=== PATIENT | female | born 1995 | race Caucasian/White ===

== ENCOUNTER → 2016-05-22 17:43 | Observation (INO) ==
[2016-05-22 16:53] LABS: Bilirubin,Urine Negative (Negative); Blood,Urine Negative (Negative); Color,Urine Dark Yellow (Yellow); Glucose,Urine (UA) Normal (Normal); Ketones,Urine Negative (Negative); Leukocyte Esterase,Urine Negative (Negative); Nitrite,Urine Negative (Negative); Protein,Urine Negative (Neg-Trace); Specific Gravity,Urine 1.026 (1.010-1.025); Urobilinogen,Urine Normal (Normal)
[2016-05-22 16:57] LABS: Clarity,Urine Hazy (Clear)
[~2016-05-22 17:43] MED LIST: Ringers Solution, Lactated 1,000 ML IVC SCH
--- NOTE | 2016-05-22 20:29 | OB/GYN Progress Note ---
Date of Encounter: 05/22/16 Time of Encounter: 20:19 - Assessment and Plan (1) contractions Current Visit: Yes Status: Acute 20 y/o @ 26 weeks presented with PTC. She was checked and closed, FHT CAT 1 , UA neg, patient discharged to follow up out pt. Objective - Vital Signs Vital Signs: Intake and Output 05/22/16 05/22/16 05/22/16 07:59 15:59 23:59 Other: Weight 51.6 kg Patient Weight 05/22/16 23:59 Weight 51.6 kg - Labs Labs: Abnormal lab results Urine Clarity Hazy (Clear) A 05/22/16 16:40 Ur Specific [place] 1.026 (1.010-1.025) H 05/22/16 16:40
== END | disposition home or self-care (01) ==
LOC: 1NENULAB
PROVIDERS: ADMIT Student in an Organized Health Care Education/Training Program; ATTEND Student in an Organized Health Care Education/Training Program

== ENCOUNTER → 2016-07-29 02:54 | Observation (INO) ==
[2016-07-29 01:32] LABS: Bilirubin,Urine Negative (Negative); Blood,Urine Negative (Negative); Color,Urine Dark Yellow (Yellow); Glucose,Urine (UA) Normal (Normal); Ketones,Urine Negative (Negative); Leukocyte Esterase,Urine Trace (Negative); Nitrite,Urine Negative (Negative); Protein,Urine Trace mg/dL (Neg-Trace); Specific Gravity,Urine > 1.030 (1.010-1.025); Urobilinogen,Urine Normal (Normal)
--- NOTE | 2016-07-29 01:32 | Discharge Summary ---
Date of Encounter: 07/29/16 Time of Encounter: 01:42 - Discharge Diagnosis (1) Uterine contractions during Priority: Primary Status: Acute Comments: Patient arrives to labor and delivery with complaints of contractions and leaking of fluid beginning at 9pm. She states positive movement. She denies headache, visual disturbance, epigastric pain, and vaginal bleeding. She is GBS negative, has an Rh negative blood type with a dose of Rhogam at 26 weeks, and has a history of late care beginning in the 2nd trimester , heroin and street suboxone use, and began group with detox and subutex use starting yesterday. Nitrazine negative SVE - closed/thick/high per RN Repeat SVE in 2 hours Extended monitoring Urinalysis contaminated and concentrated Encouraged patient to drink more water Discharge home with labor labor precautions and kick counts Follow up in office as scheduled and to labor and delivery triage as needed. (2) 36 weeks gestation of Priority: Secondary Status: Acute Comments: Follow up in office with scheduled care with Dr Mcadams. (3) NST (non-stress test) reactive Priority: Secondary Status: Acute Comments: FHTs 125 with moderate variability and 15 x 15 accels, no decels Irregular contractions. Reactive NST (4) Vaginal yeast infection Priority: Secondary Status: Acute Comments: Thick white discharge on RN's glove when removed Urine has yeast present Terazol 3 Rx sent with patient to fill tomorrow. - Discharge Medications Prescriptions: Terconazole [Terazol 3] 20 gm VG HS 3 Days Home Medications: Aspirin 81 mg DAILY 05/22/16 [History] Suboxone 8 mg-2 mg Sl Film 8 mg PO DAILY 05/22/16 [History] Terconazole [Terazol 3] 20 gm VG HS 3 Days 07/29/16 [Rx] Allergies/Adverse Reactions: Allergies No Known Allergies Allergy (Verified 01/12/16 19:24) Date of admission: 07/29/16 01:08 Primary care physician: PCP ERINN Discharging clinician: Cammie Sawyer Anticipated date of discharge: 07/29/16 - Patient Status Disposition: Home, Self-Care Condition: Good Functional capacity at discharge: independent ambulation - Discharge Instructions Follow Up With: ERINN,PCP [Primary Care Provider] - Walt Mcadams MD [Partnered Physician] - - Diet and Activity Activity: resume usual activities as tolerated Diet: regular diet Hospital Course WEIGHT LOSS PHYSICIAN Time Attestation: Total time spent providing and/or coordinating discharge services: Time Spent: Less than 30 minutes Exam - Constitutional General appearance IM: cooperative, A&O X 3, pleasant - Respiratory Respiratory exam: Present: CTAB - Cardiovascular Cardiovascular exam IM: Present: RRR, +S1, +S2 - GI/Abdominal GI/Abdominal exam IM: normal bowel sounds, soft - Extremities Exam Extremities exam IM: Present: normal capillary refill, normal inspection, radial pulses palpable and symetrical - Neurological Exam Neurological exam: alert, oriented X3, reflexes normal - VTE Reasons for not Prescribing Prophylaxis: Treatment not Indicated - Low risk for VTE
[2016-07-29 01:35] LABS: Bacteria,Urine Moderate per hpf (None-Few); RBC,Urine 0-3 per hpf (0-3); Squamous Epithelial Cell,Urine Many per lpf (None-Few); WBC,Urine 15-30 per hpf (0-3)
[2016-07-29 01:37] LABS: Clarity,Urine Slightly Hazy (Clear)
[2016-07-29 01:55] LABS: Calcium Oxalate Crystals,Urine Present; Granular Casts,Urine Few per lpf (None Seen); Hyaline Casts,Urine None Seen per lpf (None-Few); Mucus,Urine Many (Few); Uric Acid Crystals,Urine Present; Yeast,Urine Moderate per hpf (None Seen)
== END | disposition home or self-care (01) ==
LOC: 1NENULAB
PROVIDERS: ADMIT Advanced Practice Midwife; ATTEND Advanced Practice Midwife

== ENCOUNTER → 2016-08-15 19:03 | Observation (INO) ==
--- NOTE | 2016-08-15 18:05 | Discharge Summary ---
Date of Encounter: 08/15/16 Time of Encounter: 18:05 - Discharge Diagnosis (1) 39 weeks gestation of Priority: Primary Status: Acute Comments: admitted for labor evaluation (2) NST (non-stress test) reactive Priority: Secondary Status: Acute Comments: Reactive nst. Baseline 145 bpm moderate variability +15x15 accels no decels noted. (3) False labor Priority: Secondary Status: Acute Comments: no cervical change after 1 hour. SVE 1/thick/high - Discharge Medications Home Medications: Aspirin 81 mg DAILY 05/22/16 [History] Suboxone 8 mg-2 mg Sl Film 8 mg PO DAILY 05/22/16 [History] Terconazole [Terazol 3] 20 gm VG HS 3 Days 07/29/16 [Rx] Allergies/Adverse Reactions: Allergies No Known Allergies Allergy (Verified 01/12/16 19:24) Date of admission: 08/15/16 16:43 Primary care physician: PCP NO Discharging clinician: Azalea Finn Anticipated date of discharge: 08/15/16 - Patient Status Disposition: Home, Self-Care Condition: Good Functional capacity at discharge: independent ambulation - Discharge Instructions Follow Up With: ERINN,PCP [Primary Care Provider] - Walt Mcadams MD [Partnered Physician] - - Diet and Activity Activity: increase activity as tolerated Diet: regular diet Hospital Course MECHANIC FIELD SERVICE Hospital course: Patient is 20 y/o at 39w0d sent from OB office for labor evaluation due to having contractions. No sve in office today. Patient denies LOF or VB. Patient reports +FM. SVE1/thick/high per RN. Time Attestation: Total time spent providing and/or coordinating discharge services: Time Spent: Less than 30 minutes Exam - Constitutional General appearance IM: A&O X 3, pleasant, answers questions appropriately (FHR 145 bpm moderate variability +15x15 accels no decels noted. Cat. 1 tracing Irregular contractions noted.) - VTE Reasons for not Prescribing Prophylaxis: Treatment not Indicated - Low risk for VTE
== END | disposition home or self-care (01) ==
LOC: 1NENULAB
PROVIDERS: ADMIT Obstetrics & Gynecology; ATTEND Obstetrics & Gynecology

== ENCOUNTER → 2016-08-17 01:47 | Observation (INO) ==
--- NOTE | 2016-08-17 06:20 | Discharge Summary ---
Date of Encounter: 08/17/16 Time of Encounter: 01:00 - Discharge Diagnosis (1) False labor Priority: Primary Status: Acute Comments: Patient arrives to labor and delivery with c/o contractions. She was seen in the office today with Dr Mcadams and her sent her to labor and delivery for a labor evaluation. She was discharged home with labor precautions. She has returned this evening due to an increase in contractions per patient report. NST reactive per RN, contractions every 10 minutes Serial cervical exams - no cervical change 1/thick/high/posterior x2 2 hours apart per RN Discharged home with labor precautions and education on true labor vs carla- tejada/false labor Follow up in office with Dr Mcadams with routine care as previously scheduled and as needed. (2) 39 weeks gestation of Priority: Secondary Status: Acute - Discharge Medications Home Medications: Suboxone 8 mg-2 mg Sl Film 8 mg PO BID 05/22/16 [History] Allergies/Adverse Reactions: Allergies No Known Allergies Allergy (Verified 01/12/16 19:24) Date of admission: 08/16/16 23:23 Primary care physician: PCP ERINN Discharging clinician: Cammie Sawyer Anticipated date of discharge: 08/17/16 - Patient Status Disposition: Home, Self-Care Condition: Good Functional capacity at discharge: independent ambulation - Discharge Instructions Follow Up With: ERINN,PCP [Primary Care Provider] - Walt Mcadams MD [Partnered Physician] - Additional Instructions: LABOR AND DELIVERY DISCHARGE INSTRUCTIONS Signs and Symptoms to be Reported to your Doctor Immediately: * Sudden gush, continuous or intermittent lead of fluid from vagina (note the time of gush and color of fluid) * Onset of bright red vaginal bleeding with or without pain (if you had a vaginal exam during this visit you may notice some dark red spotting. This is normal.) * Contractions that are 5 minutes apart (from the beginning of one contraction to the beginning of the next) and last 45-60 seonds; contractions that you can no longer walk, talk or laugh through. * A change in the baby's activity. This could be an increase or decrease in activity. * Severe headache which does not go away with tylenol. * Sudden swelling in the face, hands, arms and/or legs. * Upper abdominal pain - sometimes associated with heartburn or nausea and is not relieved by Maalox, Mylanta or Tums. * Kick Counts __ One hour after a meal, lay down on one side in a quiet place. Count the number of time the baby moves during an hour. If less than 6 movements, notify your physician Diet: *Force fluids, 8 to 10 tall glasses of fluid per day - may include popsicles and jello *Limit caffeine - this includes chocolate, coffee, tea, any soft drink containing such as all shannan, Alex Yellow and Mountain Dew - Diet and Activity Activity: resume usual activities as tolerated Diet: regular diet Hospital Course BLOOD TESTER Time Attestation: Total time spent providing and/or coordinating discharge services: Time Spent: Less than 30 minutes - VTE Reasons for not Prescribing Prophylaxis: Treatment not Indicated - Low risk for VTE
== END | disposition home or self-care (01) ==
LOC: 1NENULAB
PROVIDERS: ADMIT Obstetrics & Gynecology; ATTEND Obstetrics & Gynecology

== ENCOUNTER 2016-08-22 09:23 | Inpatient (IN) ==
[2016-08-22] MEDS ORDERED: miSOPROStol 25 MCG TABLET VG PRN (09:59)
[2016-08-22] MEDS ORDERED: Famotidine 20 MG/2 ML VIAL IVP PRN (09:59)
[2016-08-22] MEDS ORDERED: *HR* Nalbuphine 20 MG/ML AMPUL IVP PRN (09:59)
[2016-08-22] MEDS ORDERED: Naloxone 0.4 MG/ML INJ IVP PRN (09:59)
--- NOTE | 2016-08-22 10:53 | OB/GYN History & Physical ---
Date of Encounter: 08/22/16 Time of Encounter: 10:50 Assessment and Plan (1) 40 weeks gestation of Current visit: Yes Status: Acute (2) Elective induction of labor planned Current visit: Yes Status: Acute 20 year old female reports to Labor and Delivery for induction of labor at 40 weeks and 0 days. Patient was 1cm/50%, -2 Due to tracing with periods of non reactivity will place brizuela, discussed with Dr. Pema David and epidural as desired. Maintain subutex Blood type O-, GBS negative, Rubella immune, all other serologies negative. History of Present Illness Chief complaint: Induction of Labor HPI: Ms. Spencer is a 20 year old female reports to Labor and Delivery for induction of labor at 40 weeks and 0 days. Patient was 1cm/70%, soft, anterior in office on 08/19. Patient is on subutex for her opiate abuse. Patient is a current smoker. Patient had a history of pre-eclampsia in her prior , but no issues this . Patient reports good movements. Patients denies vaginal bleeding, fluid loss, headache, vision changes, chest pain, SOB, dysuria, nausea, vomiting, diarrhea, constipation. Labs: Blood type O-, GBS negative, Rubella immune, all other serologies negative. Past Med Surg Social Fam HX - Past Medical History Medical history: no medical history, other (Opiate dependance ) Psychiatric history: no psych history - Past Surgical History Surgical History: no surgical history - Social History Smoking Status: Current every day smoker Packs per day: 0.5 Smokeless Tobacco Status: No Alcohol use: none Drug use: none, opiates - Family History Father Adopted: No Living Status: Still Living Hx Family Cardiac Disorders: Yes (hypertension) Hx Family Respiratory Disorders: No Hx Family Cancer: No Hx Family GI Disorders: No Hx Family Endocrine Disorder: No Hx Family Neuromuscular Disorders: No Hx Family Neurologic Disorders: No Hx Family HEENT Disorders: No Hx Family Autoimmune Disorders: No Obstetrical History - Pregnancies : 2 Para: 1 Term: 1 : 0 Ab's: 0 Livin Medications and Allergies Suboxone 8 mg-2 mg Sl Film 8 mg PO BID 05/22/16 [History] Allergies No Known Allergies Allergy (Verified 01/12/16 19:24) Review of System OB All systems PM: reviewed and no additional remarkable complaints except as stated Exam - Constitutional Constitutional: well developed, well nourished, no acute distress, thin - HEENT HEENT: EOMI, PERRL, Mucus Membranes Moist - Neck Neck exam: normal inspection, supple - Lungs Respiratory exam: CTAB - Cardiovascular Cardiovascular exam: RRR - Abdomen Abdomen: Present: bowel sounds normal, gravid, non tender (soft) - Extremities Extremities exam: normal inspection Deep Tendon Reflex Grade: 1+ Diminished - Vagina Vagina: Present: normal moisture - Cervix Dilation: 1 Effacement: 50 Station: -2 - Uterus Uterus exam: Present: normal size, normal contour Results All other labs normal. - VTE Reasons for not Prescribing Prophylaxis: Treatment not Indicated - Low risk for VTE
[2016-08-22 11:52] LABS: Basophils # 0.1 K/mcL (0.0-0.2); Basophils % 0.5 %; Eosinophils # 0.1 K/mcL (0.0-0.6); Eosinophils % 0.9 %; Hemoglobin 15.1 g/dL (11.5-15.4); Immature Granulocytes % 0.5 % (0-4); Lymphocytes # 3.2 K/mcL (0.6-4.6); Lymphocytes % 28.9 %; Mean Corpuscular HGB Conc 34.3 g/dL (31.6-35.5); Mean Corpuscular Hemoglobin 31.9 pg (28.0-33.3); Mean Platelet Volume 11.3 fL (9.4-12.4); Monocytes # 0.8 K/mcL (0.0-1.3); Monocytes % 7.4 %; Neutrophils # 6.8 K/mcL (1.6-8.9); Platelet Count 149 K/mcL (140-400); Red Blood Count 4.73 M/mcL (3.82-4.97); Red Cell Distribution Width 12.9 % (11.5-14.5); Segmented Neutrophils % 61.8 %
--- NOTE | 2016-08-22 12:57 | OB Labor Progress Note ---
Date of Encounter: 08/22/16 Time of Encounter: 12:56 Labor Progress Note - Subjective Subjective: Pt states feeling more uncomfortable - Heart Tones Heart Tones: 125/moderate/+accels/- decels - [place]: Occasional - Interventions Interventions: Will start pitocin. Discussed with Dr. Mcadams - Plan Plan: Will start pitocin. Discussed with Dr. Mcadams
[2016-08-22] MEDS ORDERED: Oxytocin 20 units/ LR 1000 mL 20 UNIT/1,000 ML BAG IVC SCH (13:00)
[2016-08-22] MEDS ORDERED: Ringers Solution, Lactated 1,000 ML ONE ×2 (13:09→14:51)
--- NOTE | 2016-08-22 14:11 | Anesthesia Evaluation PreOp ---
Date of Encounter: 08/22/16 Time of Encounter: 14:05 - Past History Planned Operation: vaginal del, induction Cardiac History: Denies any Significant Hx Pulmonary History: Denies Any Significant HX IDENTIFICATION TECHNICIAN History: Denies Any Significant HX Other Medical History: Denies Any Significant HX Anesthesia History: No Prior Anesthetic Complications, Past Anesthesia (no family Hx, previous epidural "ok") : Yes (term) Alcohol Use: none Drug use: none, opiates Medications and Allergies Suboxone 8 mg-2 mg Sl Film 8 mg PO BID 05/22/16 [History] Allergies No Known Allergies Allergy (Verified 01/12/16 19:24) Anesthesia Results - Labs 08/22/16 09:50 Anesthesia Exam - HEENT Pupil (Motor): Pupils equal Mallampati: II Teeth: Normal (tongue ring, must be taken out prior to procedure.) Oral Opening: Greater than 3
[2016-08-22] MEDS ORDERED: Epidural Premix (fent/bupiv) 110 ML EP ONE ×2 (14:14→20:15)
--- NOTE | 2016-08-22 14:48 | OB Labor Progress Note ---
Date of Encounter: 08/22/16 Time of Encounter: 14:39 Labor Progress Note - Subjective Subjective: Pt states feels more uncomfortable. Would like an epidural - Vital Signs Vital Signs: 120/73 - Heart Tones Heart Tones: 125/moderate/+accels/-decels - [place]: 2-3 - Plan Plan: Pt requesting epidural Continue pitocin per policy Anticipate
--- NOTE | 2016-08-22 15:15 | Anesthesia Procedures ---
Date of Encounter: 08/22/16 Time of Encounter: 14:57 Procedures: Anesthesia - Epidural/Spinal Patient ID/Chart reviewed: Yes Patient examined: Yes OB Eval: Gestational age: term OB Eval: : 2 OB Eval: Hx Para: 1 OB Eval: Contractions: Non-stressed pattern Consent Obtained: Yes Supplemental Oxygen: None/Room Air Site Prep: Aseptic Technique, Sterile prep and drape, 0.5% Chlorhexidine/Alcohol Patient position: upright Local Anesthetic: Lidocaine 1% Amount of Local Anesthetic used: 2 Touhy Needle Gauge: 18 Touhy Needle Depth (cm): 5 Catheter Depth at Skin (cm): 10 Test Dose (1.5% Lido + Epi): Volume given (mls): 3 Test Dose Result: Negative Loading Dose: Other: 12 from solution Loading Dose Administered: Thru Catheter Infusion Med: 0.125% Bupivacaine w/ 2 mcg/ml Fentanyl Infusion Rate (mls/hr): [address]: Tegaderm, Tape Interspace Used: L3-L4 Loss of Resistance (MATTHEW): Yes (saline) Blood: No CSF: No Paresthesia: No Procedure: vss though out, FHR stable per RN;s
[2016-08-22] MEDS ORDERED: ROPIVACAINE HCL/PF 0.5% 30 ML VIAL ONE (19:35)
--- NOTE | 2016-08-22 19:58 | OB Labor Progress Note ---
Date of Encounter: 08/22/16 Time of Encounter: 19:53 Labor Progress Note - Subjective Subjective: Pt resting comfortable. in bed with epidural. - Vital Signs Vital Signs: 115/83 - Cervix Cervix: 4 per RN - Heart Tones Heart Tones: 125/moderate/+accels/-decels - Boyd Boyd: q2-3 - Interventions Interventions: AROM at 1750 for clear fluid - Plan Plan: Continue to increase pitocin per policy Use peanut ball as patient desires Anticipate
--- NOTE | 2016-08-22 22:23 | OB/GYN Procedure Note ---
Delivery - Delivery Date: 08/22/16 Provider: Walt Mcadams Intrapartum events: none Delivery induction: oxytocin Delivery augmentation: rupture of membranes Delivery monitor: external FHT Anesthesia: intravenous Estimated Blood Loss: 100 - Infant (s) Infant A Infant Delivery Date: 08/22/16 Infant Delivery Time: 21:55 Presentation: vertex Position: APOORVA Route of delivery: vacuum extraction Gender: Male Viability: Viable Shoulder Dystocia: not encountered Placenta: spontaneous Cord: 3 umbilical vessels - Repair Episiotomy: none Laceration Description: None - Complications Delivery complications: none - Disposition Mom disposition: stable in LDR Mason disposition: stable in LDR - Comments Comments: Anai is a 20 y/o @ 40+0 weeks who delivered a viable male via vacuum assistance. Vacuum assistance performed secondary to maternal exhaustion. The baby's head was confirmed to be in the left occiput anterior presentation. The bladder was drained. The vacuum was placed and the correct placement in front of the posterior fontanelle was confirmed digitally. With the patient's next contraction, the vacuum was inflated and a gentle downward pressure was used to assist with bringing the baby's head to a +3 station. The contraction ended. The vacuum was released and the baby's head was delivered atraumatically. There was no nuchal cord. The baby's anterior shoulder delivered after a less than 30 second delay. The posterior shoulder and remainder of the body delivered easily. The baby's mouth and nose were bulb suctioned. The cord was clamped x2 and cut. The was handed to the respiratory therapist. The placenta delivered spontaneously, was intact and had a three-vessel cord. A vaginal inspection revealed no lacerations. EBL 100. APGARS and weight per record.
[2016-08-23] MEDS ORDERED: Acetaminophen 325 MG TABLET PO PRN (00:22)
[2016-08-23] MEDS ORDERED: Rho Immune Globulin 1,500 UNIT SYRINGE IM PRN (00:22)
[2016-08-23] MEDS ORDERED: Benzocaine/Menthol 56 GM AEROSOL SPRAY TP PRN (00:22)
[2016-08-23] MEDS ORDERED: Oxytocin 20 units/ LR 1000 mL 20 UNIT/1,000 ML BAG IVC SCH (00:22)
[2016-08-23] MEDS: Ibuprofen 600 MG TABLET PO PRN ×4 (01:22→23:08)
[2016-08-23 05:53] LABS: Basophils # 0.1 K/mcL (0.0-0.2); Basophils % 0.3 %; Eosinophils % 0.1 %; Hematocrit 40.7 % (35.3-44.9); Hemoglobin 14.2 g/dL (11.5-15.4); Immature Granulocytes % 0.5 % (0-4); Lymphocytes # 2.1 K/mcL (0.6-4.6); Lymphocytes % 11.5 %; Mean Corpuscular HGB Conc 34.9 g/dL (31.6-35.5); Mean Corpuscular Hemoglobin 32.3 pg (28.0-33.3); Mean Corpuscular Volume 92.5 fL (83.0-100.0); Mean Platelet Volume 11.1 fL (9.4-12.4); Monocytes # 1.5 K/mcL (0.0-1.3); Monocytes % 8.2 %; Neutrophils # 14.6 K/mcL (1.6-8.9); Platelet Count 150 K/mcL (140-400); Red Cell Distribution Width 12.8 % (11.5-14.5); Segmented Neutrophils % 79.4 %
[2016-08-23] MEDS: Prenatal Vit/FA 1 EACH TABLET PO SCH (08:08)
--- NOTE | 2016-08-23 08:20 | Discharge Summary ---
Date of Encounter: 08/23/16 Time of Encounter: 08:18 - Discharge Diagnosis (1) Vaginal delivery Priority: Primary Status: Acute Comments: Pt meeting milestones. (2) Chronic prescription opiate use Priority: Secondary Status: Acute Comments: Pt on subutex. - Discharge Medications Prescriptions: Ibuprofen [Motrin] 600 mg PO Q6HR PRN #60 tab PRN Reason: Cramping Docusate [Colace] 100 mg PO BID #60 Home Medications: Suboxone 8 mg-2 mg Sl Film 8 mg PO BID 05/22/16 [History] Benzocaine/Menthol [place] [Dermoplast [place]] 1 appl TP QID PRN aerosol 08/23/16 [Rx] Docusate [Colace] 100 mg PO BID #60 08/23/16 [Rx] Ibuprofen [Motrin] 600 mg PO Q6HR PRN #60 tab 08/23/16 [Rx] Vit/FA 1 each PO DAILY tab 08/23/16 [Rx] Allergies/Adverse Reactions: Allergies No Known Allergies Allergy (Verified 01/12/16 19:24) Data Procedures and tests throughout hospitalization: Laboratory Tests 08/22/16 08/23/16 09:50 03:48 WBC 11.0 18.4 H D RBC 4.73 4.40 Hgb 15.1 14.2 Hct 44.0 40.7 MCV 93.0 92.5 MCH 31.9 32.3 MCHC 34.3 34.9 RDW 12.9 12.8 Plt Count 149 150 MPV 11.3 11.1 Immature Gran % 0.5 0.5 Seg Neutrophils % 61.8 79.4 Lymphocytes % 28.9 11.5 Monocytes % 7.4 8.2 Eosinophils % 0.9 0.1 Basophils % 0.5 0.3 Neutrophils # 6.8 14.6 H Lymphocytes # 3.2 2.1 Monocytes # 0.8 1.5 H Eosinophils # 0.1 0.0 Basophils # 0.1 0.1 Labs on day of discharge: Labs from last 24 hours 08/23/16 08/22/16 03:48 09:50 WBC 18.4 H D 11.0 RBC 4.40 4.73 Hgb 14.2 15.1 Hct 40.7 44.0 MCV 92.5 93.0 MCH 32.3 31.9 MCHC 34.9 34.3 RDW 12.8 12.9 Plt Count 150 149 MPV 11.1 11.3 Immature Gran % 0.5 0.5 Seg Neutrophils % 79.4 61.8 Lymphocytes % 11.5 28.9 Monocytes % 8.2 7.4 Eosinophils % 0.1 0.9 Basophils % 0.3 0.5 Neutrophils # 14.6 H 6.8 Lymphocytes # 2.1 3.2 Monocytes # 1.5 H 0.8 Eosinophils # 0.0 0.1 Basophils # 0.1 0.1 Date of admission: 08/22/16 09:23 Primary care physician: PCP NO Consults: 08/23/16 00:22 Consult to Ambulatory Services Representative [CONS] Routine Comment: Vaginal delivery, consult needed Discharging clinician: Neisha Coleman Anticipated date of discharge: 08/23/16 - Patient Status Disposition: Home, Self-Care Condition: Good Functional capacity at discharge: independent ambulation Overall status at discharge: patient is progressing back to baseline - Discharge Instructions Follow Up With: ERINN,PCP [Primary Care Provider] - Walt Mcadams MD [Partnered Physician] - - Diet and Activity Activity: increase activity as tolerated Diet: regular diet Hospital Course Reason for admission: induction of labor Delivery: vacuum extraction Episiotomy: none Laceration: none Other procedures: none complications: none Discharge diagnosis: IUP at term delivered baby: male Hospital course: - Delivery Date: 08/22/16 Provider: Walt Mcadams Intrapartum events: none Delivery induction: oxytocin Delivery augmentation: rupture of membranes Delivery monitor: external FHT Anesthesia: intravenous Estimated Blood Loss: 100 - Infant (s) A Delivery Date: 08/22/16 Delivery Time: 21:55 Presentation: vertex Position: APOORVA Route of delivery: vacuum extraction Gender: Male Viability: Viable Shoulder Dystocia: not encountered Placenta: spontaneous Cord: 3 umbilical vessels - Repair Episiotomy: none Laceration Description: None - Complications Delivery complications: none - Disposition Mom disposition: home PPD#1 [place] disposition: SHARAD observation in nursery for 5 days Time Attestation: Total time spent providing and/or coordinating discharge services: Time Spent: Less than 30 minutes Exam - Constitutional Vitals: Temp Pulse Resp BP Pulse Ox 97.7 F 80 16 110/78 98 08/23/16 02:30 08/23/16 02:39 08/23/16 02:39 08/23/16 02:30 08/23/16 02:30 General appearance IM: A&O X 3 - Respiratory Respiratory exam: Present: CTAB - Cardiovascular Cardiovascular exam IM: Present: RRR, +S1, +S2 - GI/Abdominal GI/Abdominal exam IM: soft - Rectal Rectal exam: deferred - Uterine Tone: Firm - Extremities Exam Extremities exam IM: Present: normal inspection - Neurological Exam Neurological exam: normal gait, oriented X3 - Psychiatric Additional comments: reports good mood
[2016-08-24] MEDS: Prenatal Vit/FA 1 EACH TABLET PO SCH (07:42)
[2016-08-24] MEDS: Ibuprofen 600 MG TABLET PO PRN (08:03)
--- NOTE | 2016-08-24 08:19 | Discharge Summary ---
Date of Encounter: 08/24/16 Time of Encounter: 08:17 - Discharge Diagnosis (1) Vaginal delivery Priority: Primary Status: Acute Comments: Contiue routine care discharge home today 5 day hold for subutex therapy in - Discharge Medications Prescriptions: Ibuprofen [Motrin] 600 mg PO Q6HR PRN #60 tab PRN Reason: Cramping Docusate [Colace] 100 mg PO BID #60 Home Medications: Suboxone 8 mg-2 mg Sl Film 8 mg PO BID 05/22/16 [History] Benzocaine/Menthol [place] [Dermoplast [place]] 1 appl TP QID PRN aerosol 08/23/16 [Rx] Docusate [Colace] 100 mg PO BID #60 08/23/16 [Rx] Ibuprofen [Motrin] 600 mg PO Q6HR PRN #60 tab 08/23/16 [Rx] Vit/FA 1 each PO DAILY tab 08/23/16 [Rx] Allergies/Adverse Reactions: Allergies No Known Allergies Allergy (Verified 01/12/16 19:24) Data Procedures and tests throughout hospitalization: Laboratory Tests 08/22/16 08/23/16 08/23/16 09:50 03:48 03:48 WBC 11.0 18.4 H D RBC 4.73 4.40 Hgb 15.1 14.2 Hct 44.0 40.7 MCV 93.0 92.5 MCH 31.9 32.3 MCHC 34.3 34.9 RDW 12.9 12.8 Plt Count 149 150 MPV 11.3 11.1 Immature Gran % 0.5 0.5 Seg Neutrophils % 61.8 79.4 Lymphocytes % 28.9 11.5 Monocytes % 7.4 8.2 Eosinophils % 0.9 0.1 Basophils % 0.5 0.3 Neutrophils # 6.8 14.6 H Lymphocytes # 3.2 2.1 Monocytes # 0.8 1.5 H Eosinophils # 0.1 0.0 Basophils # 0.1 0.1 Baby's Blood Type A RH NEGATIVE Mother's Blood Type O RH NEGATIVE Rhogam Indicated NO Labs on day of discharge: Labs from last 24 hours 08/23/16 03:48 Baby's Blood Type A RH NEGATIVE Mother's Blood Type O RH NEGATIVE Rhogam Indicated NO Date of admission: 08/22/16 09:23 Primary care physician: PCP NO Consults: 08/23/16 00:22 Consult to Pet Care Assistant [CONS] Routine Comment: Vaginal delivery, consult needed Discharging clinician: Azalea Finn Anticipated date of discharge: 08/24/16 - Patient Status Disposition: Home, Self-Care Condition: Good - Discharge Instructions Follow Up With: Walt Mcadams MD [Partnered Physician] - NO,PCP [Primary Care Provider] - - Diet and Activity Activity: increase activity as tolerated Hospital Course Delivery: vacuum extraction Episiotomy: none Laceration: none Other procedures: none complications: none Discharge diagnosis: IUP at term delivered baby: male (bottle feeding) Time Attestation: Total time spent providing and/or coordinating discharge services: Time Spent: Less than 30 minutes Exam - Constitutional Vitals: Temp Pulse Resp BP Pulse Ox 98 F 77 14 127/87 97 08/23/16 21:00 08/23/16 21:00 08/24/16 07:50 08/23/16 21:00 08/23/16 21:00 General appearance IM: A&O X 3, pleasant, answers questions appropriately - Respiratory Respiratory exam: Present: CTAB - Cardiovascular Cardiovascular exam IM: Present: RRR, +S1, +S2 - GI/Abdominal GI/Abdominal exam IM: normal bowel sounds - Uterine Tone: Firm Uterus Position: 1 Finger Below Umbilicus, Midline - Extremities Exam Extremities exam IM: Present: full ROM, normal capillary refill, normal inspection - Neurological Exam Neurological exam: alert, oriented X3, reflexes normal
[2016-08-24 09:54] VITALS: BP 131/84
== END 2016-08-24 09:00 | disposition home or self-care (01) | DRG 560 ==
LOC: 1NENULAB → OBSVTOIN 09:23 → 1NENUOBS 08-23 00:22
PROVIDERS: ADMIT Student in an Organized Health Care Education/Training Program; ATTEND Student in an Organized Health Care Education/Training Program